=== PATIENT | female | born 1970 | race Caucasian/White ===

== ENCOUNTER 2019-10-29 06:00 | Outpatient (RCR) | payer OTHER, SELFPAY | END 2019-11-28 00:01 | LOC: SPT 06:00 | PROVIDERS: Family Provider Internal Medicine; Visit Provider Orthopaedic Surgery | DX: Z47.89 Encounter for other orthopedic aftercare (principal); S42.202D Unspecified fracture of upper end of left humerus, subsequent encounter for fracture with routine healing; X58.XXXD Exposure to other specified factors, subsequent encounter | CPT/HCPCS: 97110 ×8; G0283 ×8 ==

== ENCOUNTER 2023-05-18 00:18 | Emergency (ER) | payer BC, SELFPAY ==
[2023-05-18 00:26] VITALS: BP 126/82; PULSE 82; RESP 16; TEMP 36.4; O2SAT 98; BMI 37.1
--- NOTE | 2023-05-18 00:29 | W.ED.ABDPA2 ---
HPI - Abdominal Pain General: Chief Complaint: Abdominal Pain Stated Complaint: Abd and Back Pain and N Time Seen by Provider: 05/18/23 00:27 History of Present Illness: 53-year-old female comes in today with complaints of right upper quadrant pain radiating to the back. Patient reports pain started tonight with nausea. Patient has had no vomiting. Patient reports a gastric bypass sleeve done in January of this year. Patient denies any other abdominal surgeries at that time. Patient does have a history of diabetes, hypertension, and asthma. Patient does take Dyazide daily but no other medications routinely at this time besides supplements. Associated Symptoms: Denies fever(s) Review of Systems General: Reports: 10 or more systems reviewed and unremarkable except in HPI and below Const: Denies: fever(s) Card: Denies: chest pain Resp: Denies: dyspnea GI: Reports: abdominal pain : Denies: difficulty voiding Musc: Reports: back pain Skin/Breast: Denies: rash PFSH ED PFSH: Family History Mother Asthma Grandfather Cancer, Onset Age: 90 lung cancer Social History Smoking and tobacco status: never smoked Physical Exam Const: COMMON NORMALS: alert HENMT: COMMON NORMALS: normocephalic HEAD & SCALP: normocephalic Neck/C-Spine: COMMON NORMALS: full ROM Resp: COMMON NORMALS: normal respiratory effort and clear to auscultation bilaterally AUSCULTATION: clear to auscultation bilaterally Cardio: COMMON NORMALS: regular rate RATE: regular rate GI: COMMON NORMALS: Soft to palpation PALPATION: Yes Soft to palpation and Yes Tenderness to palpation present (GI) Details: RUQ : COMMON NORMALS: Yes no CVA tenderness BLADDER/KIDNEY EXAM: Yes no CVA tenderness Back/Pelvis: COMMON NORMALS: no CVA tenderness Extremity: COMMON NORMALS: normal to inspection Neuro: SENSORIUM/ORIENTATION: Yes alert Skin: COMMON NORMALS: turgor normal GENERAL SKIN EXAM: turgor normal Course Vital Signs: Vital signs: Vital Signs Temperature 97.6 F 05/18/23 00:26 Pulse Rate 87 05/18/23 02:09 Respiratory Rate 16 05/18/23 02:09 Blood Pressure 121/77 05/18/23 02:09 Pulse Oximetry 99 05/18/23 02:09 Oxygen Delivery Me thod Room Air 05/18/23 00:26 MDM - Abdominal Pain Medical Decision Making 53-year-old female comes in today for complaints of right upper quadrant abdominal pain. On exam respirations are even lungs are clear to auscultation. Patient's abdomen soft with right upper quadrant tenderness. Bowel sounds are present. Vital signs are normal. Differential diagnosis includes but not limited to gastritis, pancreatitis, gallbladder disease, renal calculi. Laboratory values were unremarkable. CT noted distended gallbladder without any obvious visible signs of gallstones or sludge. No signs of obstruction were noted on labs at this time with a normal bilirubin, normal liver enzymes, and unremarkable lipase. Patient does have tenderness in the right upper quadrant. Pain was resolved with Toradol and morphine. Patient was discharged home with recommendations for follow-up with surgeon for further evaluation and treatment. Patient was written a prescription for Bentyl for gallbladder colic, hydrocodone for severe pain, and promethazine for nausea. Patient was recommended return to the ER for worsening symptoms such as high fever, blood in vomit or stool, or new concerns. Patient reported understanding agreed to plan. Case management was requested to assist with follow-up appointment with surgeon. Lab Data 05/18/23 00:40 05/18/23 00:40 Labs/Radiology: Radiology Impressions Abdomen/Pelvis CT 05/18/23 00:37 IMPRESSION: 1. Distended gallbladder, no visible gallstones by CT, see above. 2. No free air or significant bowel distention. No evidence for bowel obstruction. 3. Normal appendix. 4. The left ovary contains a 15 x 12 mm dominant follicle versus very small cyst. Significance unlikely due to small size. Trace amount of cul-de-sac fluid. 5. Other findings discussed above. Laboratory Results WBC 11.2 10^3/uL (4.0-10.0) H 05/18/23 00:40 RBC 5.11 10^6/uL (4.1-5.3) 05/18/23 00:40 Hgb 13.8 g/dL (11.5-15.3) 05/18/23 00:40 Hct 42.4 % (37.0-47.0) 05/18/23 00:40 MCV 83.0 fl (81-99) 05/18/23 00:40 MCH 27.0 pg (28.0-34.0) L 05/18/23 00:40 MCHC 32.5 g/dL (30.0-36.0) 05/18/23 00:40 RDW 13.8 % (12.1-15.1) 05/18/23 00:40 Plt Count 330 10^3/cmm (130-400) 05/18/23 00:40 MPV 10.0 fL (7.4-10.4) 05/18/23 00:40 Neut % (Auto) 49.5 % 05/18/23 00:40 Lymph % (Auto) 40.0 % 05/18/23 00:40 [place] % (Auto) 7.9 % 05/18/23 00:40 Eos % (Auto) 2.0 % 05/18/23 00:40 Baso % (Auto) 0.4 % 05/18/23 00:40 Neut # (Auto) 5.53 10^3/uL (1.8-7.7) 05/18/23 00:40 Lymph # (Auto) 4.5 10^3/uL (0.8-4.8) 05/18/23 00:40 [place] # (Auto) 0.9 10^3/uL (0.2-0.9) 05/18/23 00:40 Eos # (Auto) 0.2 10^3/uL (0.0-0.8) 05/18/23 00:40 Baso # (Auto) 0.1 10^3/uL (0.0-0.1) 05/18/23 00:40 Nucleated RBC % (auto) 0 % 05/18/23 00:40 Nucleated RBCs # 0.0 /100WBC 05/18/23 00:40 Sodium 138 mmol/L (136-145) 05/18/23 00:40 Potassium 3.4 mmol/L (3.5-5.1) L 05/18/23 00:40 Chloride 101 mmol/L (98-107) 05/18/23 00:40 Carbon Dioxide 22 mmol/L (22-29) 05/18/23 00:40 Anion Gap 18.4 (5-19) 05/18/23 00:40 BUN 17 mg/dL (6-20) 05/18/23 00:40 Creatinine 0.7 mg/dL (0.5-0.9) 05/18/23 00:40 GFR Calculation 88.2 mL/min (90-130) L 05/18/23 00:40 Glucose 79 mg/dL (65-115) 05/18/23 00:40 Calculated Osmolality 286 mOsm/kg (285-295) 05/18/23 00:40 Calcium 9.2 mg/dL (8.5-10.5) 05/18/23 00:40 Total Bilirubin 0.6 mg/dL (0.15-1.2) 05/18/23 00:40 AST 33 U/L (0-32) H 05/18/23 00:40 ALT 24 U/L (0-33) 05/18/23 00:40 Alkaline Phosphatase 78 U/L (35-105) 05/18/23 00:40 Total Protein 7.4 g/dL (6.6-8.7) 05/18/23 00:40 Albumin 4.0 g/dL (3.5-5.2) 05/18/23 00:40 Globulin 3.4 g/dL (1.3-4.6) 05/18/23 00:40 Lipase 77 U/L (13-60) H 05/18/23 00:40 HCG, Qual Negative (Negative) 05/18/23 00:40 Urine Color Yellow (Yellow) 05/18/23 01:23 Urine Appearance Clear (CLEAR) 05/18/23 01:23 Urine pH 6.5 (5-7) 05/18/23 01:23 Ur Specific [place] 1.010 (1.005-1.030) 05/18/23 01:23 Urine Protein 1+ (Negative) H 05/18/23 01:23 Urine Glucose (UA) Norm (Normal) 05/18/23 01: Urine Ketones Negative (Negative) 05/18/23 01:23 Urine Blood 2+ (Negative) H 05/18/23 01:23 Urine Nitrate Negative (Negative) 05/18/23 01:23 Urine Bilirubin Neg (Negative) 05/18/23 01:23 Urine Urobilinogen Norm mg/dL (Negative) 05/18/23 01:23 Ur Leukocyte Esterase Trace (Negative) H 05/18/23 01:23 Urine RBC 0-4 /hpf (0-2) H 05/18/23 01:23 Urine WBC 0-4 /hpf (0-5) H 05/18/23 01:23 Ur Squamous Epith Cells 10-15 /hpf (0-5) H 05/18/23 01:23 Amorphous Sediment Not Reportable 05/18/23 01:23 Urine Bacteria Trace /hpf (NONE) 05/18/23 01:23 EKG Data EKG 1: EKG interpretation date: 05/18/23 EKG interpretation time: Prior EKG tracings: not available for review Interpretation: EKG notes sinus bradycardia with regular rate of [address] elevation or ectopy is noted. Prolonged QT interval. No prior exam was available for comparison. Discharge Plan Discharge Patient Disposition: Home Clinical Impression: Gallbladder colic Condition: Stable Prescriptions: New dicyclomine 20 mg tablet 20 mg PO TID PRN (Reason: gallbladder spasm) Qty: 30 0RF hydrocodone-acetaminophen 5-325 mg tablet 1 tab PO Q6H PRN (Reason: pain (scale score 7-10)) Qty: 10 0RF promethazine 12.5 mg tablet 12.5 mg PO Q6H PRN (Reason: nausea and vomiting) Qty: 20 0RF Rx Instructions: 3 doses during day; last dose no later than 4 hr before bedtime No Action bupropion HCl 300 mg tablet extended release 24 hr PO triamterene-hydrochlorothiazid 37.5-25 mg capsule PO metformin 500 mg tablet extended release 24 hr PO lisinopril 10 mg tablet PO benzonatate 200 mg capsule PO albuterol sulfate 90 mcg/actuation HFA aerosol inhaler inhalation budesonide-formoterol 160-4.5 mcg/actuation HFA aerosol inhaler inhalation ipratropium-albuterol 0.5 mg-3 mg(2.5 mg base)/3 mL solution for nebulization 3 ml inhalation QID PRN (Reason: shortness of breath or wheezing) Spiriva Respimat 1.25 mcg/actuation mist 2 puff inhalation DAILY Qty: 4 3RF montelukast [Singulair] 10 mg tablet 10 mg PO DAILY Qty: 30 0RF Rx Instructions: NEEDS APPT PRIOR TO FURTHER REFILLS Discharge Orders: Discharge ED (Routine); Ordered 05/18/23 Ordered By: Sergei Miranda Referrals: Suresh Cabrera DO [Primary Care Provider] - Discharge Diet: Advance as tolerated Discharge Activity: Increase activity as tolerated Patient Instructions: Biliary Colic (ED), Abdominal Pain (ED), Opioid Safety Activity Restrictions/Additional Instructions: Clear liquid diet until abdominal pain is completely resolved. Increase diet back to normal slowly then over 48 hours. Avoid foods high in fat as it may aggravate symptoms. Use medication as directed for pain of the gallbladder. Follow-up with surgeon for further evaluation and treatment. Return to ER for worsening symptoms such as high fever greater than 100.4, inability to hold fluids down, blood in vomit or stool, uncontrolled pain, or changes in skin color or the white of the eye. Coding Level of Care Code ED Outside Machinist Apprentice for Idania Fraire
--- NOTE | 2023-05-18 00:37 | CTR_ITS ---
PROCEDURE INFORMATION: Exam: CT Abdomen And Pelvis With Contrast Exam date and time: 05/18/2023 12:50 AM Age: 53 years old Clinical indication: Nausea and vomiting; Abdominal pain; Localized; Right upper quadrant (ruq); Prior surgery; Surgery date: 1-6 months; Surgery type: Gastric sleeve mar 2022. Endometrial ablation; Patient HX: Ruq pain with n/v. TECHNIQUE: Imaging protocol: Computed tomography of the abdomen and pelvis with contrast. Radiation optimization: All CT scans at this facility use at least one of these dose optimization techniques: automated exposure control; mA and/or kV adjustment per patient size (includes targeted exams where dose is matched to clinical indication); or iterative reconstruction. Contrast material: OMNI 350; Contrast volume: 100 ml; Contrast route: INTRAVENOUS (IV); REPORTING DATA: Count of CT and Cardiac NM exams in prior 12 months: This patient has received 0 known CTs and 0 known cardiac nuclear medicine studies in the 12 months prior to the current study. COMPARISON: No relevant prior studies available. RADIATION DOSE METRICS: Total DLP (mGy-cm): 1069.03 FINDINGS: Lungs: The lung bases are clear. Liver: There is mild fatty infiltration of the liver. Gallbladder and bile ducts: The gallbladder appears abnormally distended, transverse diameter up to 5 cm. No visible gallstones by CT. Ultrasound would be more sensitive for detecting gallstones, if clinically needed. No definite pericholecystic fluid or inflammatory changes. No biliary tree dilation. Pancreas: Unremarkable. Spleen: Unremarkable. Adrenal glands: Unremarkable. Kidneys and ureters: Unremarkable. Stomach and bowel: Evidence for prior gastric sleeve surgery. No significant bowel distention. There are no CT findings to strongly suggest diverticulitis. Appendix: The appendix is visualized and appears normal. Intraperitoneal space: No free intraperitoneal air, or generalized ascites. Vasculature: No evidence for abdominal aortic aneurysm. Lymph nodes: No retroperitoneal adenopathy. Urinary bladder: Unremarkable as visualized. Reproductive: The left ovary contains a 15 x 12 mm dominant follicle versus very small cyst. Significance unlikely due to small size. Trace amount of cul-de-sac fluid. Bones/joints: Mild to moderate degenerative/arthritic changes in the lower lumbar spine. Soft tissues: Very small umbilical hernia, containing only fat. CT/CT abdomen pelvis w con* [id number] IMPRESSION: 1. Distended gallbladder, no visible gallstones by CT, see above. 2. No free air or significant bowel distention. No evidence for bowel obstruction. 3. Normal appendix. 4. The left ovary contains a 15 x 12 mm dominant follicle versus very small cyst. Significance unlikely due to small size. Trace amount of cul-de-sac fluid. 5. Other findings discussed above.
--- NOTE | 2023-05-18 00:37 | ECG_ITS ---
[facility] Test Date: 2023-05-18 Pat Name: Catrachita Damon Department: Room: Gender: Female Alarm Signal Operator: : 1970 Requested By: Sergei Parker Order Number: [id number] Manfred MD: [place] Drew M.D. Measurements Intervals [place] Rate: 57 P: 76 NV: 155 QRS: 96 QRSD: 105 T: 79 QT: 480 QTc: 468 Interpretive Statements SINUS BRADYCARDIA BORDERLINE RIGHT AXIS DEVIATION [QRS AXIS > 90] PROLONGED QT INTERVAL Compared to ECG 03/09/2018 18:12:25 Prolonged QT interval now present Sinus rhythm no longer present T-wave abnormality no longer present Electronically Signed On 05-18-2023 16:25:18 CDT by [place] Drew M.D. [email or web address]
[2023-05-18] MEDS: ondansetron 2 mg/ML SDV 2 mL 4 MG IVP (00:43)
[2023-05-18] MEDS: ketorolac 30 mg/mL INJ 15 MG IVP (00:43)
[2023-05-18 00:44] LABS: Basophils # 0.1 10^3/uL (0.0-0.1); Basophils % 0.4 %; Eosinophils # 0.2 10^3/uL (0.0-0.8); Hematocrit 42.4 % (37.0-47.0); Hemoglobin 13.8 g/dL (11.5-15.3); Lymphocytes # 4.5 10^3/uL (0.8-4.8); Mean Corpuscular HGB Conc 32.5 g/dL (30.0-36.0); Monocytes # 0.9 10^3/uL (0.2-0.9); Monocytes % 7.9 %; Neutrophils # 5.53 10^3/uL (1.8-7.7); Neutrophils % 49.5 %; Nucleated Red Blood Cells % 0 %; Platelet Count 330 10^3/cmm (130-400); Red Blood Count 5.11 10^6/uL (4.1-5.3); Red Cell Distribution Width 13.8 % (12.1-15.1); White Blood Count 11.2 10^3/uL (4.0-10.0)
[2023-05-18] MEDS: morphine 4 mg/mL SDV 1 mL IVP (00:44)
[2023-05-18 00:52] LABS: HCG, Serum Qual Negative (Negative)
[2023-05-18] MEDS: iohexol 350 mg/mL 500 mL Btl (per mL) IV (00:53)
[2023-05-18 01:16] LABS: Alanine Aminotransferase 24 U/L (0-33); Alkaline Phosphatase 78 U/L (35-105); Anion Gap 18.4 (5-19); Aspartate Amino Transferase 33 U/L (0-32); Blood Urea Nitrogen 17 mg/dL (6-20); Calcium 9.2 mg/dL (8.5-10.5); Carbon Dioxide 22 mmol/L (22-29); Chloride 101 mmol/L (98-107); Globulin 3.4 g/dL (1.3-4.6); Glomerular Filtration Rate 88.2 mL/min (90-130); Glucose 79 mg/dL (65-115); Lipase 77 U/L (13-60); Osmolality Calculated 286 mOsm/kg (285-295); Potassium 3.4 mmol/L (3.5-5.1); Sodium 138 mmol/L (136-145); Total Bilirubin 0.6 mg/dL (0.15-1.2); Total Protein 7.4 g/dL (6.6-8.7)
[2023-05-18 01:25] VITALS: BP 121/77; PULSE 64; RESP 16; O2SAT 97
[2023-05-18 01:44] LABS: Protein Urine 1+ (Negative); Urine Appearance Clear (CLEAR); Urine Color Yellow (Yellow); pH Urine 6.5 (5-7)
[2023-05-18 01:45] LABS: Add Urine Microscopic? YES; Bilirubin Urine Neg (Negative); Blood Urine 2+ (Negative); Glucose Urine UA Norm (Normal); Ketones Urine Negative (Negative); Leukocyte Esterase Urine Trace (Negative); Nitrate Urine Negative (Negative); Urobilinogen Urine Norm (Negative)
[2023-05-18 01:46] LABS: RBC Urine 0-4 /hpf (0-2); WBC Urine 0-4 /hpf (0-5)
[2023-05-18 01:47] LABS: Bacteria Urine TRACE /hpf
[2023-05-18 02:09] VITALS: BP 121/77; PULSE 87; RESP 16; O2SAT 99
[2023-05-18 03:08] VITALS: BP 121/77; PULSE 87; RESP 16; TEMP 36.4; O2SAT 99
--- NOTE | 2023-05-18 08:13 | PC.SOCIAL ---
Addendum entered by Lesia Kirby 06/04/23 11:38: immigration case manager received the following messages from the general surgery clinic regarding follow up appointment: patient called back and is going to SPF 06/03 On 06/03/23 @ 15:12 Tmi Coyle Wrote To General Surgery Front Off Left message 06/03 On 06/02/23 @ 14:04 Tim Coyle Wrote To General Surgery Front Off left message 06/02 Original Note: General Surgery F/u Message sent to general surgery for f/u appt request; clinic to contact patient with appt date/time.
== END 2023-05-18 03:09 | disposition home or self-care (01) ==
PROVIDERS: Emergency Provider Nurse Practitioner Family; PCP Internal Medicine
DX: K80.20 Calculus of gallbladder without cholecystitis without obstruction (principal)
CPT/HCPCS: 74177; 80053; 81001; 83690; 84703; 85025; 93005; 96374; 96375; 99285; J1885; J2270; J2405; Q9967

== ENCOUNTER 2023-08-10 22:29 | Emergency (ER) | payer BC, SELFPAY ==
[2023-08-10 22:36] VITALS: BP 133/86; PULSE 82; RESP 20; TEMP 36.6; O2SAT 99; BMI 35.5
[2023-08-10 22:48] LABS: Basophils # 0.1 10^3/uL (0.0-0.1); Basophils % 0.5 %; Eosinophils # 0.3 10^3/uL (0.0-0.8); Eosinophils % 2.5 %; Hematocrit 40.7 % (36-47); Lymphocytes # 3.8 10^3/uL (0.8-4.8); Lymphocytes % 34.1 %; Mean Corpuscular HGB Conc 33.7 g/dL (30-55); Mean Corpuscular Hemoglobin 27.7 pg (27-33); Mean Corpuscular Volume 82.4 fl (85-98); Mean Platelet Volume 10.1 fL (7.4-10.4); Monocytes # 0.9 10^3/uL (0.2-0.9); Monocytes % 7.9 %; Neutrophils # 6.05 10^3/uL (1.8-7.7); Neutrophils % 54.8 %; Nucleated Red Blood Cells % 0 %; Platelet Count 311 10^3/cmm (157-399); Red Blood Count 4.94 10^6/uL (3.85-5.65); Red Cell Distribution Width 13.4 % (12.1-15.1); White Blood Count 11.04 10^3/uL (3.29-11.43)
[2023-08-10 23:05] VITALS: RESP 22
[2023-08-10] MEDS: morphine 4 mg/mL SDV 1 mL IVP (23:05)
[2023-08-10] MEDS: ondansetron 2 mg/ML SDV 2 mL 4 MG IVP (23:05)
[2023-08-10] MEDS: sodium chloride 0.9% 1,000 ML 999 ML IV (23:06)
[2023-08-10] MEDS: ketorolac 30 mg/mL INJ IVP (23:08)
[2023-08-10 23:09] VITALS: BP 135/84; PULSE 72; RESP 29; O2SAT 99
[2023-08-10 23:13] LABS: Alanine Aminotransferase 33 U/L (0-33); Albumin Level 4.4 g/dL (3.5-5.2); Alkaline Phosphatase 83 U/L (35-105); Anion Gap 14.4 (5-19); Aspartate Amino Transferase 49 U/L (0-32); Blood Urea Nitrogen 24 mg/dL (6-20); Carbon Dioxide 25 mmol/L (22-29); Chloride 106 mmol/L (98-107); Globulin 2.9 g/dL (1.3-4.6); Glomerular Filtration Rate 88.2 mL/min (90-130); Glucose 86 mg/dL (65-115); Lipase 55 U/L (13-60); Osmolality Calculated 297 mOsm/kg (285-295); Potassium 3.4 mmol/L (3.5-5.1); Sodium 142 mmol/L (136-145); Total Bilirubin 0.3 mg/dL (0.15-1.2); Total Protein 7.3 g/dL (6.6-8.7)
--- NOTE | 2023-08-10 23:36 | USR_ITS ---
PROCEDURE INFORMATION: Exam: US Abdomen, Limited; Right Upper Quadrant Exam date and time: 08/10/2023 11:56 PM Age: 53 years old Clinical indication: Abdominal pain; Prior surgery; Surgery date: 1-6 months; Surgery type: Gastric sleeve February 17, 2023; Patient HX: Ruq pain, biliary colic tonight. Patient was seen this er on 05/31/2023 with the same symptoms and the same general US appearance. ; Additional info: Cholelithiasis, biliary colic, pain/n/v, ruq abd US TECHNIQUE: Imaging protocol: Real time ultrasound of the abdomen with image documentation. Limited exam focused on the right upper quadrant. COMPARISON: US gall bladder [id number] 05/31/2023 9:40 AM FINDINGS: Liver: Liver measures 19.1 cm in length. Mildly echogenic liver parenchyma without discrete mass. Gallbladder: Gallbladder is distended and contains low level internal echoes as well as echogenic material with distal shadowing. There is variable gallbladder wall thickness measuring as much as 7 mm and as little as 2 mm. No pericholecystic fluid. Positive sonographic Dobbs sign. Biliary ducts: Common duct measures 6 mm at the augustus hepatis. Pancreas: Pancreas is obscured by bowel gas. Right kidney: Normal. No mass. No hydronephrosis. Portal venous: Antegrade flow in the main portal vein. US/US abdomen limited [id number] IMPRESSION: 1. Exam demonstrates cholelithiasis with features of acute cholecystitis. There is mild prominence of the biliary tree but no visible common duct filling defect. Consider MRCP if patient has symptoms are suggestive choledocholithiasis. 2. Echogenic liver parenchyma is most commonly associated with fatty infiltration. Liver is mildly enlarged.
[2023-08-11] VITALS: BP 119/65; PULSE 64; O2SAT 98
--- NOTE | 2023-08-11 00:07 | ED_ITS ---
HPI - Abdominal Pain General: Chief Complaint: Abdominal Pain Stated Complaint: abdomen pain Time Seen by Provider: 08/10/23 22:32 History of Present Illness: Patient presents to the ER with complaints of right upper quadrant abdominal pain. Patient has known gallstones with a poor ejection fraction of about 15%. Patient is already set up to have her gallbladder removed in [place] but not until August 31 about. She does not feel like she can wait that long since she is having increased abdominal pain with nausea vomiting at this time. Review of Systems General: Reports: 10 or more systems reviewed and unremarkable except in HPI and below PFSH ED PFSH: Family History Mother Asthma Grandfather Cancer, Onset Age: 90 lung cancer Social History Smoking and tobacco status: never smoked Physical Exam Const: COMMON NORMALS: no acute distress, average body habitus, patient oriented x3, no limitations, healthy appearing, alert and well nourished HENMT: COMMON NORMALS: normocephalic, atraumatic, hearing grossly normal bilaterally, external ears normal, Normal external nose present and moist oral mucous membranes HEAD & SCALP: normocephalic and atraumatic NOSE: Normal external nose present EXTERNAL EAR: Yes external ears normal Neck/C-Spine: COMMON NORMALS: no JVD Chest: COMMONS NORMALS: normal inspection of the chest and normal palpation of entire chest wall Resp: COMMON NORMALS: normal respiratory effort, No retractions, No use of accessory muscles and clear to auscultation bilaterally AUSCULTATION: clear to auscultation bilaterally Cardio: COMMON NORMALS: no JVD, regular rate, regular rhythm, S1 normal heart sound present, S2 normal heart sound present, No gallops present (Cardio), No clicks present (Cardio), No murmurs present (Cardio) and No rub (Cardio) RATE: regular rate RHYTHM: regular rhythm HEART SOUNDS: S1 normal heart sound present and S2 normal heart sound present GI: COMMON NORMALS: Normal to inspection, nondistended, normoactive bowel sounds present, Soft to palpation, No hepatosplenomegaly present and no masses; negative for non-tender (Tender to palpation mostly over right upper quadrant) PALPATION: Yes Soft to palpation and Yes No hepatosplenomegaly present : COMMON NORMALS: Yes no CVA tenderness BLADDER/KIDNEY EXAM: Yes no CVA tenderness Back/Pelvis: COMMON NORMALS: no CVA tenderness Neuro: COMMON NORMALS: patient oriented x3 SENSORIUM/ORIENTATION: Yes alert Course Vital Signs: Vital signs: Vital Signs Temperature 97.9 F 08/10/23 22:36 Pulse Rate 66 08/11/23 00:30 Respiratory Rate 25 H 08/11/23 00:30 Blood Pressure 120/72 08/11/23 00:30 Pulse Oximetry 96 08/11/23 00:30 Oxygen Delivery Me thod Room Air 08/11/23 00:30 MDM - Abdominal Pain Medical Decision Making Patient presented to the ER with right upper quadrant pain consistent with worsening biliary colic. Lab work was obtained which was essentially unremarkable ultrasound was obtained which showed possible features of acute cholecystitis. Dr. Fang general surgeon at [facility] in [place] was on-call for Dr. Mckinnon patient's doctor. He said definitely sound like he needs to come out but does need to come out tonight. He is as long as we can control her pain she can call the office for second morning and see about getting her appointment moved up. Patient was fine with this. Patient be discharged home with hydrocodone and she will call their office first thing in the morning to see about getting her appointment moved up. Differential Diagnosis Unlikely abdominal pain, acute appendicitis, calculus of kidney, constipation, diverticulitis, endometriosis, gastroenteritis, pancreatitis or small bowel obstruction Medical Records I reviewed the patient's medical records. Lab Data I reviewed the patient's lab results. 08/10/23 22:41 08/10/23 22:41 Labs/Radiology: Radiology Impressions Abdomen Ultrasound 08/10/23 23:36 IMPRESSION: 1. Exam demonstrates cholelithiasis with features of acute cholecystitis. There is mild prominence of the biliary tree but no visible common duct filling defect. Consider MRCP if patient has symptoms are suggestive choledocholithiasis. 2. Echogenic liver parenchyma is most commonly associated with fatty infiltration. Liver is mildly enlarged. Laboratory Results WBC 11.04 10^3/uL (3.29-11.43) 08/10/23 22:41 RBC 4.94 10^6/uL (3.85-5.65) 08/10/23 22:41 Hgb 13.70 g/dL (11.27-16.99) 08/10/23 22:41 Hct 40.7 % (36-47) 08/10/23 22:41 MCV 82.4 fl (85-98) L 08/10/23 22:41 MCH 27.7 pg (27-33) 08/10/23 22:41 MCHC 33.7 g/dL (30-55) 08/10/23 22:41 RDW 13.4 % (12.1-15.1) 08/10/23 22:41 Plt Count 311 10^3/cmm (157-399) 08/10/23 22:41 MPV 10.1 fL (7.4-10.4) 08/10/23 22:41 Neut % (Auto) 54.8 % 08/10/23 22:41 Lymph % (Auto) 34.1 % 08/10/23 22:41 [place] % (Auto) 7.9 % 08/10/23 22:41 Eos % (Auto) 2.5 % 08/10/23 22:41 Baso % (Auto) 0.5 % 08/10/23 22:41 Neut # (Auto) 6.05 10^3/uL (1.8-7.7) 08/10/23 22:41 Lymph # (Auto) 3.8 10^3/uL (0.8-4.8) 08/10/23 22:41 [place] # (Auto) 0.9 10^3/uL (0.2-0.9) 08/10/23 22:41 Eos # (Auto) 0.3 10^3/uL (0.0-0.8) 08/10/23 22:41 Baso # (Auto) 0.1 10^3/uL (0.0-0.1) 08/10/23 22:41 Nucleated RBC % (auto) 0 % 08/10/23 22:41 Nucleated RBCs # 0.0 /100WBC 08/10/23 22:41 Sodium 142 mmol/L (136-145) 08/10/23 22:41 Potassium 3.4 mmol/L (3.5-5.1) L 08/10/23 22:41 Chloride 106 mmol/L (98-107) 08/10/23 22:41 Carbon Dioxide 25 mmol/L (22-29) 08/10/23 22:41 Anion Gap 14.4 (5-19) 08/10/23 22:41 BUN 24 mg/dL (6-20) H 08/10/23 22:41 Creatinine 0.7 mg/dL (0.5-0.9) 08/10/23 22:41 GFR Calculation 88.2 mL/min (90-130) L 08/10/23 22:41 Glucose 86 mg/dL (65-115) 08/10/23 22:41 Calculated Osmolality 297 mOsm/kg (285-295) H 08/10/23 22:41 Calcium 9.0 mg/dL (8.5-10.5) 08/10/23 22:41 Total Bilirubin 0.3 mg/dL (0.15-1.2) 08/10/23 22:41 AST 49 U/L (0-32) H 08/10/23 22:41 ALT 33 U/L (0-33) 08/10/23 22:41 Alkaline Phosphatase 83 U/L (35-105) 08/10/23 22:41 Total Protein 7.3 g/dL (6.6-8.7) 08/10/23 22:41 Albumin 4.4 g/dL (3.5-5.2) 08/10/23 22:41 Globulin 2.9 g/dL (1.3-4.6) 08/10/23 22:41 Lipase 55 U/L (13-60) 08/10/23 22:41 HCG, Qual Negative (Negative) 08/10/23 00:37 Urine Color Yellow (Yellow) 08/11/23 00:33 Urine Appearance Sl hazy (CLEAR) A 08/11/23 00:33 Urine pH 7 (5-7) 08/11/23 00:33 Ur Specific [place] 1.010 (1.005-1.030) 08/11/23 00:33 Urine Protein Trace (Negative) 08/11/23 00:33 Urine Glucose (UA) Norm (Normal) 08/11/23 00:33 Urine Ketones Negative (Negative) 08/11/23 00:33 Urine Blood Trace (Negative) H 08/11/23 00:33 Urine Nitrate Negative (Negative) 08/11/23 00:33 Urine Bilirubin 1+ (Negative) H 08/11/23 00:33 Urine Urobilinogen 1 mg/dL (Negative) H 08/11/23 00:33 Ur Leukocyte Esterase 1+ (Negative) H 08/11/23 00:33 Urine RBC 0-4 /hpf (0-2) H 08/11/23 00:33 Urine WBC 0-4 /hpf (0-5) H 08/11/23 00:33 Ur Squamous Epith Cells None /hpf (0-5) 08/11/23 00:33 Calcium Oxalate Crystal 25-40 /hpf H 08/11/23 00:33 Amorphous Sediment Not Reportable 08/11/23 00:33 Urine Bacteria 1+ /hpf (NONE) H 08/11/23 00:33 Urine Mucus 2+ /hpf 08/11/23 00:33 Discharge Plan Discharge Patient Disposition: Home Clinical Impression: Recurrent biliary colic Condition: Stable Prescriptions: New hydrocodone-acetaminophen 5-325 mg tablet 1 tab PO Q6H PRN (Reason: pain) Qty: 14 0RF No Action bupropion HCl 300 mg tablet extended release 24 hr PO triamterene-hydrochlorothiazid 37.5-25 mg capsule PO metformin 500 mg tablet extended release 24 hr PO lisinopril 10 mg tablet PO benzonatate 200 mg capsule PO albuterol sulfate 90 mcg/actuation HFA aerosol inhaler inhalation budesonide-formoterol 160-4.5 mcg/actuation HFA aerosol inhaler inhalation ipratropium-albuterol 0.5 mg-3 mg(2.5 mg base)/3 mL solution for nebulization 3 ml inhalation QID PRN (Reason: shortness of breath or wheezing) Spiriva Respimat 1.25 mcg/actuation mist 2 puff inhalation DAILY Qty: 4 3RF montelukast [Singulair] 10 mg tablet 10 mg PO DAILY Qty: 30 0RF Rx Instructions: NEEDS APPT PRIOR TO FURTHER REFILLS dicyclomine 20 mg tablet 20 mg PO TID PRN (Reason: gallbladder spasm) Qty: 30 0RF hydrocodone-acetaminophen 5-325 mg tablet 1 tab PO Q6H PRN (Reason: pain (scale score 7-10)) Qty: 10 0RF promethazine 12.5 mg tablet 12.5 mg PO Q6H PRN (Reason: nausea and vomiting) Qty: 20 0RF Rx Instructions: 3 doses during day; last dose no later than 4 hr before bedtime Discharge Orders: Discharge ED (Routine); Ordered 08/11/23 Ordered By: Ehsan Haider Referrals: Suresh Cabrera DO [Primary Care Provider] - 1 week Patient Instructions: Biliary Colic (ED), Opioid Safety, Pain Management Activity Restrictions/Additional Instructions: Later on this morning please call with Dr. Mckinnon office in [place] to see about getting your surgery schedule pushed up to get your gallbladder out sooner. Please take the pain medicine we have prescribed for you as directed as needed. Coding Level of Care Code ED Conservation Scientist for Idania Fraire
[2023-08-11 00:30] VITALS: BP 120/72; PULSE 66; RESP 25; O2SAT 96
[2023-08-11 01:16] LABS: HCG Qualitative Urine. Negative (Negative)
[2023-08-11 01:19] LABS: Add Urine Culture? No; Add Urine Microscopic? YES; Bacteria Urine 1+ /hpf; Bilirubin Urine 1+ (Negative); Blood Urine Trace (Negative); Calcium Oxalate Crystals Urine 25-40 /hpf; Glucose Urine UA Norm (Normal); Ketones Urine Negative (Negative); Leukocyte Esterase Urine 1+ (Negative); Mucus Urine 2+ /hpf; Nitrate Urine Negative (Negative); Protein Urine Trace (Negative); RBC Urine 0-4 /hpf (0-2); Urine Appearance SL Hazy (CLEAR); Urine Color Yellow (Yellow); Urobilinogen Urine 1 mg/dL (Negative); WBC Urine 0-4 /hpf (0-5); pH Urine 7 (5-7)
[2023-08-11 01:54] VITALS: BP 119/71; PULSE 55; RESP 16; O2SAT 98
[2023-08-11] MEDS: morphine 4 mg/mL SDV 1 mL IVP (02:04)
[2023-08-11 02:09] VITALS: BP 116/80; PULSE 66; RESP 16; O2SAT 99
[2023-08-11 02:11] VITALS: BP 116/80; PULSE 66; RESP 16; TEMP 36.6; O2SAT 99
== END 2023-08-11 02:15 | disposition home or self-care (01) ==
PROVIDERS: Emergency Provider Emergency Medicine; PCP Internal Medicine
DX: K80.00 Calculus of gallbladder with acute cholecystitis without obstruction (principal)
CPT/HCPCS: 76705; 80053; 81001; 81025; 83690; 85025; 96361; 96374; 96375; 96376; 99284; J1885; J2270; J2405; J7030

== ENCOUNTER 2024-06-16 08:44 | Outpatient (CLI) | payer BC, SELFPAY ==
--- NOTE | 2024-06-16 08:49 | MM_ITS ---
WS: [id number] Bilateral screening 3D tomosynthesis digital mammogram, 06/16/2024 Clinical Data: SCREENING Comparison: No12/02/2016, 02/08/2014, 09/22/2010. Findings: The breast parenchymal pattern shows fibroglandular tissue. No spiculated masses or clustered calcifi cations are seen. There are no secondary signs of carcinoma.There is an unchanged scar in the upper outer quadrant of the right breast. There are scattered unchanged small benign calcifications in both breasts. MM/[id number] Impression: 1. Negative bilateral mammogram unchanged. 2. Recommend annual screening mammograms. BIRADS: 1-Negative FOLLOW UP: 1 Year Follow-up The CAD template checker was used.
== END 2024-06-16 08:45 | disposition home or self-care (01) ==
LOC: RAD 08:45
PROVIDERS: PCP Internal Medicine; Visit Provider Internal Medicine
DX: Z12.31 Encounter for screening mammogram for malignant neoplasm of breast (principal); R92.323 Mammographic fibroglandular density, bilateral breasts; R92.1 Mammographic calcification found on diagnostic imaging of breast; N64.89 Other specified disorders of breast
CPT/HCPCS: 77063; 77067

== ENCOUNTER 2024-10-26 10:05 | Emergency (ER) | payer BC, SELFPAY ==
--- NOTE | 2024-10-26 10:07 | XRR_ITS ---
PROCEDURE INFORMATION: Exam: XR Left Wrist Exam date and time: 10/26/2024 10:20 AM Age: 54 years old Clinical indication: Injury or trauma; Fall; Blunt trauma (contusions or hematomas); Wrist; Left TECHNIQUE: Imaging protocol: Radiologic exam of the left wrist. Views: 3 or more views. COMPARISON: No relevant prior studies available. FINDINGS: Bones/joints: There is a minimally displaced fracture involving the distal radius. No fractures are otherwise noted. There is no evidence of a dislocation. There is minimal joint space narrowing with small osteophytes involving the 1st carpometacarpal joint. Bony mineralization is normal. Soft tissues: There is surrounding soft tissue swelling. XR/XR wrist LT min 3V* [id number] IMPRESSION: 1. Minimally displaced fracture distal radius.
[2024-10-26 10:17] VITALS: BP 128/82; PULSE 71; RESP 18; TEMP 36.7; O2SAT 97
--- NOTE | 2024-10-26 10:18 | ED_ITS ---
HPI - Extremity Injury (Upper) General: Chief Complaint: Extremity Injury, Upper Stated Complaint: left wrist injury Time Seen by Provider: 10/26/24 10:11 Source: patient Mode of arrival: ambulatory Limitations: no limitations History of Present Illness: 54-year-old female who states that she h ad fell off a hay [place] just prior to arrival and landed on her left wrist. States she has distal wrist pain over the radius. States painful to move and palpation denies any other injuries denies hitting her head denies any elbow or shoulder pain Associated symptoms: Denies neck pain Related Data Home Medications Medication Instructions Recorded Confirmed albuterol sulfate 90 mcg/actuation g inhalation 08/27/21 08/27/21 aerosol inhaler benzonatate 200 mg capsule cap PO 08/27/21 08/27/21 budesonide-formoterol HFA 160 g inhalation 08/27/21 08/27/21 mcg-4.5 mcg/actuation aerosol inhaler bupropion HCl 300 mg 24 hr tablet, ea PO 08/27/21 08/27/21 extended release ipratropium 0.5 mg-albuterol 3 mg 3 ml inhalation QID PRN shortness 08/27/21 08/27/21 (2.5 mg base)/3 mL nebulization of breath or wheezing soln lisinopril 10 mg tablet tab PO 08/27/21 08/27/21 metformin 500 mg tablet,extended tab PO 08/27/21 08/27/21 release 24 hr triamterene 37.5 cap PO 08/27/21 08/27/21 mg-hydrochlorothiazide 25 mg capsule Previous Rx's Medication Instructions Recorded tiotropium bromide 1.25 2 puff inhalation DAILY #4 grams 08/27/21 mcg/actuation mist for inhalation (Spiriva Respimat) montelukast 10 mg tablet 10 mg PO DAILY #30 tabs 08/25/22 (Singulair) dicyclomine 20 mg tablet 20 mg PO TID PRN gallbladder spasm 05/18/23 #30 tabs hydrocodone 5 mg-acetaminophen 325 1 tab PO Q6H PRN pain (scale score 05/18/23 mg tablet 7-10) #10 tabs promethazine 12.5 mg tablet 12.5 mg PO Q6H PRN nausea and 05/18/23 vomiting #20 tabs hydrocodone 5 mg-acetaminophen 325 1 tab PO Q6H PRN pain #14 tabs 08/11/23 mg tablet Allergies Allergy/AdvReac Type Severity Reaction Status Date / Time cephalexin Allergy Intermediate rash Verified 08/10/23 22:40 NSAIDS (Non-Steroidal Allergy Unknown Verified 08/10/23 22:40 Anti-Inflamma Review of Systems Const: Denies: fever(s), chills, body aches or change in appetite ENMT: Denies: throat pain or dental pain Card: Denies: chest pain Resp: Denies: dyspnea GI: Denies: abdominal pain, nausea, vomiting or diarrhea Musc: Reports: extremity pain; Denies: neck pain or back pain Skin/Breast: Denies: rash Neuro: Denies: headache(s) PFSH ED PFSH: Family History Mother Asthma Grandfather Cancer, Onset Age: 90 lung cancer Social History Smoking and tobacco/nicotine status: never used tobacco/nicotine Physical Exam Const: COMMON NORMALS: no acute distress, patient oriented x3 and healthy appearing HENMT: COMMON NORMALS: normocephalic and atraumatic HEAD & SCALP: normocephalic and atraumatic Eye: COMMON NORMALS: conjunctivae normal CONJUNCTIVA: Yes conjunctivae normal Neck/C-Spine: COMMON NORMALS: full ROM and supple Chest: COMMONS NORMALS: normal inspection of the chest Resp: COMMON NORMALS: normal respiratory effort Cardio: COMMON NORMALS: regular rate RATE: regular rate Extremity: COMMON NORMALS: full ROM NARRATIVE EXTREMITY EXAM: Tenderness over distal left radius Neuro: COMMON NORMALS: patient oriented x3, moves all extremities and no focal motor deficits Psych: COMMON NORMALS: mental status grossly normal, Normal thought process present and cooperative THOUGHT PROCESS: Normal thought process present Skin: COMMON NORMALS: no rashes or lesions noted and no wounds GENERAL SKIN EXAM: no rashes or lesions noted Course Vital Signs: Vital signs: Vital Signs Temperature 98.1 F 10/26/24 10:17 Pulse Rate 98 10/26/24 10:21 Respiratory Rate 18 10/26/24 10:21 Blood Pressure 128/82 10/26/24 10:21 Pulse Oximetry 97 10/26/24 10:17 Oxygen Delivery Me thod Room Air 10/26/24 10:17 MDM - Extremity Injury (Upper) Medical Decision Making Patient presents with likely distal radius fracture will place in a sugar-tong along with sling will get her follow-up with orthopedics she is to return if worsening she understands agrees to plan. Medical Records I reviewed the patient's medical records. XR interpretation done by ED provider, pending radiology final review ED provider radiology interpretation(s): xr l wrist: likely subtle fx of distal radius Discharge Plan Discharge Patient Disposition: Home Clinical Impression: Distal radius fracture, left Qualifiers: Encounter type: initial encounter Fracture type: closed Condition: Stable Prescriptions: No Action bupropion HCl 300 mg tablet extended release 24 hr PO triamterene-hydrochlorothiazid 37.5-25 mg capsule PO metformin 500 mg tablet extended release 24 hr PO lisinopril 10 mg tablet PO benzonatate 200 mg capsule PO albuterol sulfate 90 mcg/actuation HFA aerosol inhaler inhalation budesonide-formoterol 160-4.5 mcg/actuation HFA aerosol inhaler inhalation ipratropium-albuterol 0.5 mg-3 mg(2.5 mg base)/3 mL solution for nebulization 3 ml inhalation QID PRN (Reason: shortness of breath or wheezing) Spiriva Respimat 1.25 mcg/actuation mist 2 puff inhalation DAILY Qty: 4 3RF montelukast [Singulair] 10 mg tablet 10 mg PO DAILY Qty: 30 0RF Rx Instructions: NEEDS APPT PRIOR TO FURTHER REFILLS dicyclomine 20 mg tablet 20 mg PO TID PRN (Reason: gallbladder spasm) Qty: 30 0RF hydrocodone-acetaminophen 5-325 mg tablet 1 tab PO Q6H PRN (Reason: pain (scale score 7-10)) Qty: 10 0RF promethazine 12.5 mg tablet 12.5 mg PO Q6H PRN (Reason: nausea and vomiting) Qty: 20 0RF Rx Instructions: 3 doses during day; last dose no later than 4 hr before bedtime hydrocodone-acetaminophen 5-325 mg tablet 1 tab PO Q6H PRN (Reason: pain) Qty: 14 0RF Discharge Orders: Discharge ED (Routine); Ordered 10/26/24 Ordered By: Korby Claudy Referrals: Chris De La O DO [Physician] - 4-7 days Suresh Cabrera DO [Primary Care Provider] - Discharge Diet: Advance as tolerated Discharge Activity: Resume usual activity Patient Instructions: Wrist Fracture in Adults (ED), Opioid Safety Coding Level of Care Code ED [employer] Resources Technical Officer for Idania Fraire
[2024-10-26 10:21] VITALS: BP 128/82; PULSE 98; RESP 18
[2024-10-26] MEDS: HYDROcodone-acetaminophen 5-325 mg Tablet 1 TAB PO (10:28)
--- NOTE | 2024-10-26 10:31 | DCPLANNER ---
messaged ortho for er f/u
[2024-10-26 10:51] VITALS: BP 131/72; PULSE 75; O2SAT 98
== END 2024-10-26 10:53 | disposition home or self-care (01) ==
PROVIDERS: Emergency Provider Emergency Medicine; PCP Internal Medicine
DX: S52.502A Unspecified fracture of the lower end of left radius, initial encounter for closed fracture (principal); W19.XXXA Unspecified fall, initial encounter
CPT/HCPCS: 29125; 73110; 99283

== ENCOUNTER → 2024-10-31 13:02 | Outpatient (BNVA) | payer BC, SELFPAY | PROVIDERS: PCP Internal Medicine; Visit Provider Orthopaedic Surgery | DX: S52.532A Colles' fracture of left radius, initial encounter for closed fracture (principal); W19.XXXA Unspecified fall, initial encounter | CPT/HCPCS: 73110 ==

== ENCOUNTER 2024-10-31 15:52 | Outpatient (CLI) | payer BC, SELFPAY | END 2024-10-31 15:53 | disposition home or self-care (01) | LOC: SPT 15:53 | PROVIDERS: PCP Internal Medicine; Visit Provider Orthopaedic Surgery | DX: Z46.89 Encounter for fitting and adjustment of other specified devices (principal); S52.592D Other fractures of lower end of left radius, subsequent encounter for closed fracture with routine healing; X58.XXXD Exposure to other specified factors, subsequent encounter | CPT/HCPCS: 97760; L3982 ==

== ENCOUNTER → 2024-12-05 08:42 | Outpatient (BNVA) | payer BC, SELFPAY | PROVIDERS: PCP Internal Medicine; Visit Provider Orthopaedic Surgery | DX: M25.532 Pain in left wrist (principal); S52.532A Colles' fracture of left radius, initial encounter for closed fracture; X58.XXXA Exposure to other specified factors, initial encounter | CPT/HCPCS: 73110 ==

== ENCOUNTER → 2025-01-16 08:28 | Outpatient (BNVA) | payer BC, SELFPAY | PROVIDERS: PCP Internal Medicine; Visit Provider Orthopaedic Surgery | DX: S52.502A Unspecified fracture of the lower end of left radius, initial encounter for closed fracture (principal); W17.89XA Other fall from one level to another, initial encounter | CPT/HCPCS: 73110 ==